=== PATIENT | female | born 1975 | race Two or more races ===

== ENCOUNTER 2022-03-24 21:32 | Inpatient (IN) | payer OTHER, SELFPAY ==
[2022-03-24 21:30] VITALS: BP 170/90; PULSE 88; RESP 20; TEMP 36.7; O2SAT 94
[2022-03-24 23:45] VITALS: BP 136/86; PULSE 78; RESP 18; TEMP 36.8; O2SAT 94
[2022-03-24] MEDS: LORazepam 1 MG TABLET 2 MG PO (23:47)
[2022-03-24] MEDS: HaloperidoL 5 MG TABLET PO (23:47)
[2022-03-24] MEDS: cloNIDine HCL 0.1 MG TABLET PO (23:47)
--- NOTE | 2022-03-25 | PC.NURSE ---
Chhaya was admitted to [facility] at 2114 from [facility] ED on CV for treatment of exacerbation of schizoaffective disorder. Admission assessment and legals completed with the assistance of japanese interpreter services. Patient reports she is recently homeless, living in car with son who is 18 but developmentally delayed. She reports being on Seroquel over 10 years but says it no longer works. She ran out on 03/18/22. She reports she has not slept in 6 days and is experiencing CAH to harm herself and believes [facility] ED was poisoning her with meds and the tv there was talking to her. She received Haldol 5mg and Ativan 2mg IM in [facility] Ed last night and found it helpful. On arrival to the unit she is hyperverbal and hypermotor. Speech is pressured and tangential. She is cooperative with care. Mood is hypomanic. Affect is anxious and irritable.She denies plan or intent to harm self or others. Appetite is good. Substance Issues include remote history of alcoholism with last drink along time ago. She reports using crack and percocets she bought on the street just prior to going to [facility] ED but her tox screen was neg for both ( only pos for thc) Medical Issues?include asthma but denies sob or wheeze at present. She reports chronic generalized pain and says she has arthritis. She declined analgesics. She reports having gotten her flu shot this season. On arrival to the unit BP is elevated. She says she used to take medication for hypertension but this was not confirmed by Sarah[facility]. She was given clonidine 0.1mg po x 1 for hypertension. Chhaya is on 15 minute Safety Checks.
[2022-03-25] MEDS: Acetaminophen 325 MG TABLET 650 MG PO ×3 (05:52→20:46)
[2022-03-25] MEDS: hydrOXYzine HCL 25 MG TABLET PO ×2 (05:53→12:17)
[2022-03-25] MEDS: Nicotine Polacrilex 2 MG GUM BUCCAL ×4 (05:53→20:46)
[2022-03-25 08:15] VITALS: BP 140/81; PULSE 77; RESP 20; TEMP 36.7; O2SAT 98
[2022-03-25 09:30] LABS: Alanine Aminotransferase 12 U/L (0-31); Albumin Level 4.4 g/dL (3.5-5.0); Alkaline Phosphatase 99 U/L (39-117); Anion Gap 14 (12-20); Aspartate Amino Transferase 14 U/L (5-31); Bilirubin Total 0.6 mg/dL (0.0-1.0); Blood Urea Nitrogen 11 mg/dL (9-16); Calcium 9.9 mg/dL (8.4-10.2); Carbon Dioxide 27 mmol/L (22-29); Chloride 103 mmol/L (96-108); Cholesterol 185 mg/dL; Estimated Glomerular Filt Rate > 60; Glucose Fasting 171 mg/dL (60-99); HDL Cholesterol 32 mg/dL; LDL Cholesterol Calculated 127 mg/dl; Potassium 4.3 mmol/L (3.3-5.1); Sodium 140 mmol/L (135-145); Total Protein 7.2 g/dL (6.5-8.0); Triglycerides 132 mg/dL
--- NOTE | 2022-03-25 10:57 | PC.NURSE ---
this am Pt was standing on her bed trying to cover the window from the light with a hospital gown. Pt appeared unsteady. Pt was advised via hospital food service worker to not stand on bed due to fall risk. Pt verbalized understanding and said she wont do it again.
[2022-03-25] MEDS: Milk of Magnesia 30 ML ORAL.SUSP PO (16:19)
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
[2022-03-25 20:22] VITALS: BP 131/83; PULSE 80; RESP 18; TEMP 36.4; O2SAT 96
[2022-03-25] MEDS: LORazepam 0.5 MG TABLET PO (20:40)
[2022-03-25] MEDS: cloNIDine HCL 0.1 MG TABLET PO (20:40)
[2022-03-25] MEDS: QUEtiapine Fumarate 100 MG TABLET PO (20:40)
[2022-03-26] MEDS: hydrOXYzine HCL 25 MG TABLET PO ×2 (04:25→21:54)
[2022-03-26] MEDS: Nicotine Polacrilex 2 MG GUM BUCCAL ×6 (08:14→22:01)
[2022-03-26] MEDS: LORazepam 0.5 MG TABLET PO ×3 (09:23→21:53)
[2022-03-26] MEDS: cloNIDine HCL 0.1 MG TABLET PO ×3 (09:23→21:54)
[2022-03-26] MEDS: Nicotine 7 MG PATCH.TD24 TRANSDERMA (09:24)
[2022-03-26 09:30] VITALS: BP 134/94; PULSE 92; RESP 18; TEMP 36.7; O2SAT 99
[2022-03-26] MEDS: HaloperidoL 5 MG TABLET PO (09:47)
[2022-03-26] MEDS: Acetaminophen 325 MG TABLET 650 MG PO ×2 (09:47→21:55)
[2022-03-26] MEDS: LORazepam 1 MG TABLET PO (09:47)
--- NOTE | 2022-03-26 10:03 | P.PNPSI_ITS ---
Subjective Subjective Date of Service: 03/26/22 Reason For Visit: psychosis Subjective Notes: Conditional Voluntary Interim History: Pt reports back pain, requesting percocet as she states this is the only medication that works. Pt easily frustrated and irritable. She reports passive SI. No VH/AH. Medication Compliance: Yes Review of Systems Review of Systems General: No fevers, malaise, unintentional weight loss HEENT: No blurred vision, diplopia. No sore throat, nasal congestion, rhinorrhea, sinus pain, ear pain Cardiovascular: No chest pain, palpitations, or leg edema Respiratory: No shortness of breath, wheezing, cough GI: No abdominal pain, nausea, vomiting, diarrhea, constipation, melena, hematochezia : No dysuria, hematuria, increased urinary frequency, decreased urinary output MSK: +myalgia, back pain Neuro: No headaches, weakness, paresthesias Psych: +depression Skin: No rashes or lesions Mental Status Exam Mental Status Exam Narrative: adequately dressed, disheveled. cooperative. PMA of strong and broad gestures. speech incr in rate, amount, loudness. nml tone. decr latency. affect labile, tearful. mood depressed and anxious. denies SI/HI. +AH. Diagnostics Vital Signs (24Hr): Vital Signs - 24 hr 03/27/22 09:20 03/27/22 20:45 Temperature 98.6 F 97.8 F Pulse Rate 103 H 85 Respiratory Rate 18 16 Blood Pressure 148/96 H 124/77 Pulse Oximetry 98 97 Oxygen Delivery Method Room Air Room Air Labs 03/26/22 15:22 03/25/22 08:51 Labs: Laboratory Results - last 48 hr 03/26/22 03/26/22 15:22 15:22 WBC 11.4 H RBC 5.04 Hgb 14.2 Hct 43.0 MCV 85.3 MCH 28.2 MCHC 33.0 RDW 12.1 Plt Count 339 MPV 9.3 L Immature Gran % (Auto) 0.3 Neut % (Auto) 68.4 Lymph % (Auto) 21.0 [place] % (Auto) 7.6 Eos % (Auto) 1.9 Baso % (Auto) 0.8 Lymph # (Auto) 2.4 [place] # (Auto) 0.9 Eos # (Auto) 0.2 Baso # (Auto) 0.1 Abs Immat Gran (auto) 0.03 Absolute Neuts (auto) 7.8 Absolute Nucleated RBC 0.000 Nucleated RBC % (auto) 0.0 Estimat Average Glucose 128 Hemoglobin A1c % 6.1 Medications Medications Current Medications Acetaminophen (Acetaminophen 325 Mg Tablet) 650 mg PO Q6H PRN PRN Reason: Headache/Pain Mild Scale (1-3) Last Admin: 03/28/22 01:06 Dose: 650 mg Al Hydroxide/Mg Hydroxide (Magnesium Hydrox/Alum Hydrox 30 Ml Oral.Susp) 30 ml PO Q6H PRN PRN Reason: Heartburn/Nausea Albuterol Sulfate (Albuterol Sulfate 90 Mcg 8 Gm Inhaler) 2 puff INHALE RQ4H PRN PRN Reason: Shortness of Breath/Wheezing Amlodipine Besylate (Amlodipine Besylate 5 Mg Tablet) 5 mg PO BEDTIME [facility]; Protocol Last Admin: 03/27/22 20:49 Dose: 5 mg Baclofen (Baclofen 10 Mg Tablet) 10 mg PO TID [facility] Last Admin: 03/27/22 20:49 Dose: 10 mg Clonidine HCl (Clonidine Hcl 0.1 Mg Tablet) 0.1 mg PO TID [facility]; Protocol Last Admin: 03/27/22 20:50 Dose: 0.1 mg Fluticasone Propionate (Fluticasone Propionate 100 Mcg Blst.W.Dev) 1 puff INHALE RBID [facility] Last Admin: 03/27/22 20:51 Dose: 1 puff Gabapentin (Gabapentin 100 Mg Capsule) 200 mg PO TID [facility] Last Admin: 03/27/22 20:50 Dose: 200 mg Haloperidol (Haloperidol 1 Mg Tablet) 2 mg PO TID [facility] Last Admin: 03/27/22 20:50 Dose: 2 mg Hydroxyzine HCl (Hydroxyzine Hcl 25 Mg Tablet) 25 mg PO Q6H PRN PRN Reason: Anxiety Last Admin: 03/28/22 01:06 Dose: 25 mg Lorazepam (Lorazepam 0.5 Mg Tablet) 0.5 mg PO TID [facility] Last Admin: 03/27/22 20:50 Dose: 0.5 mg Magnesium Hydroxide (Milk Of Magnesia 30 Ml Oral.Susp) 30 ml PO DAILY PRN PRN Reason: Constipation Last Admin: 03/25/22 16:19 Dose: 30 ml Nicotine (Nicotine 7 Mg Patch.Td24) 7 mg TRANSDERMA DAILY [facility] Last Admin: 03/27/22 08:48 Dose: 7 mg Nicotine Polacrilex (Nicotine Polacrilex 2 Mg Gum) 2 mg BUCCAL Q1H PRN PRN Reason: Nicotine Cravings Last Admin: 03/28/22 04:07 Dose: 2 mg Quetiapine Fumarate (Quetiapine Fumarate 100 Mg Tablet) 100 mg PO BEDTIME [facility] Last Admin: 03/27/22 20:49 Dose: 100 mg Quetiapine Fumarate (Quetiapine Fumarate 100 Mg Tablet) 100 mg PO BEDTIME PRN PRN Reason: insomnia Last Admin: 03/27/22 20:51 Dose: 100 mg Allergies Allergies Allergy/AdvReac Type Severity Reaction Status Date / Time No Known Allergies Allergy Unverified 12/05/19 18:20 Assessment & Plan Assessment & Plan (1) Mood disorder: Status: Acute Code(s): F39 - Unspecified mood [affective] disorder (2) Cocaine use disorder: Status: Acute Code(s): F14.10 - Cocaine abuse, uncomplicated (3) Opioid use disorder: Status: Acute Code(s): F11.90 - Opioid use, unspecified, uncomplicated Plan 03/26 continue tx. scheduled haldol 2mg po TID per pt request as this seemed to calm her down She may benefit from mood stabilizer. Patient educated on: diagnosis Reason for contiued inpatient stay Substantial Risk for: harm to self Time Spent With Patient Time: Total time managing care of this patient today ____ minutes.
[2022-03-26 14:29] VITALS: BP 150/91; PULSE 86; O2SAT 96
[2022-03-26 15:27] LABS: MANUAL DIFF FLAG NO
[2022-03-26] MEDS: Gabapentin 100 MG CAPSULE 200 MG PO ×2 (15:28→21:54)
[2022-03-26] MEDS: HaloperidoL 1 MG TABLET 2 MG PO ×2 (15:28→21:54)
[2022-03-26 15:29] LABS: Basophils Absolute Auto 0.1 X10*3/uL (0.0-0.2); Basophils Percent Auto 0.8 % (0-2); Eosinophils Absolute Auto 0.2 X10*3/uL (0.0-0.4); Eosinophils Percent Auto 1.9 % (0-4); Hemoglobin 14.2 g/dl (12.0-16.0); Imm Gran Abs Auto 0.03 X10*3/uL (0.00-0.03); Imm Gran Pct Auto 0.3 % (0.0-0.4); Lymphocytes Absolute Auto 2.4 X10*3/uL (1.2-4.9); Mean Corpuscular Hemoglobin 28.2 pg (27.0-33.0); Mean Corpuscular Volume 85.3 fL (80.0-98.0); Mean Platelet Volume 9.3 fL (9.4-12.3); Monocytes Absolute Auto 0.9 X10*3/uL (0.1-1.2); Monocytes Percent Auto 7.6 % (2-11); Neutrophils Absolute Auto 7.8 x10*3/uL (2.0-8.3); Neutrophils Percent Auto 68.4 % (45-73); Platelet Count 339 X10*3/uL (160-400); Red Blood Count 5.04 X10*6/uL (4.20-5.50); Red Cell Distribution Width 12.1 % (11.0-16.0); White Blood Count 11.4 X10*3/uL (4.8-10.8)
[2022-03-26] MEDS: Baclofen 10 MG TABLET PO ×2 (15:29→21:55)
--- NOTE | 2022-03-26 15:39 | HO.PM.IMCN ---
History of Present Illness Data of Consult Service Date: 03/26/22 Requesting physician: Benigno Tamez Primary Care Provider: Unknown Physician HPI Reason for consult: medical H&P 46 year old female with history of asthma, osteoarthritis, sleep apnea non compliant with CPAP, prediabetes, carpal tunnel syndrome, current 1ppd smoker who is homeless admitted to psychiatry with consult placed to Medicine for medical H&P. She tells me she has been living in her car with her disabled son and has been off of her medications for some time. She has had her albuterol inhaler and states she has been needing it at least once daily. She does continue to smoke 1 pack of cigarettes daily. Denies any alcohol or illicit drug use. Complaining of muscle aches, depression, and painful varicose veins that have been aching for months. Review of Systems Review of Systems: General: No fevers, malaise, unintentional weight loss HEENT: No blurred vision, diplopia. No sore throat, nasal congestion, rhinorrhea, sinus pain, ear pain Cardiovascular: No chest pain, palpitations, or leg edema Respiratory: No shortness of breath, wheezing, cough GI: No abdominal pain, nausea, vomiting, diarrhea, constipation, melena, hematochezia : No dysuria, hematuria, increased urinary frequency, decreased urinary output MSK: +myalgia, back pain Neuro: No headaches, weakness, paresthesias Psych: +depression Skin: No rashes or lesions [facility] Medical History Asthma Carpal tunnel syndrome Cigarette smoker Hypertension Prediabetes Sleep apnea Social History Household Members: Children Household Members Other:: Patient and son are homeless Housing: Homeless Do you presently have visiting nurse or other home services: No Patient Tobacco Use Status: Current everyday Tobacco user Tobacco use type: Cigarette Cigarette Packs Per Day: 1 Cigarettes Per Day: 20.0 Years Smoked: 30 Smoked in Last 30 Days: Yes Patient Interested in Nicotine Replacement: Yes Patient Given Instructions on How to Stop Smoking: No Second Hand Smoke Exposure: No Use of substances other than those prescribed or required for medical reasons: Yes Substance Use Type: Crack/Cocaine, Marijuana, Opiates and Prescription Drugs Substance Use Type Other:: per pt buys percocet and does crack regularly. tox screen negative for both Substance Use Frequency: Chronic Longstanding Last Used Substance: Just Prior to Admission Currently Displaying Signs/Symptoms of Drug Intoxication Withdrawal: No Any prior treatment program specific to substance use: No Have you been hit, kicked, punched, or otherwise hurt by someone within the past year? If so, by whom?: No Do you feel safe in your current relationship?: No Current Relationship Is there a partner from a previous relationship who is making you feel unsafe now?: No Are you made to feel afraid or neglected: No Advance Directives: No Advance Directives Information Provided: No Do you have thoughts of harming others: None Do you have a plan to hurt others: No Plan Recently lost weight without trying: No Eating poorly because of decreased appetite: No Nutrition Risks: No Nutritional Risk Patient : No : No service: No Meds Allergies Allergy/AdvReac Type Severity Reaction Status Date / Time No Known Allergies Allergy Unverified 12/05/19 18:20 Active Medications: Current Medications Acetaminophen (Acetaminophen 325 Mg Tablet) 650 mg PO Q6H PRN PRN Reason: Headache/Pain Mild Scale (1-3) Last Admin: 03/26/22 09:47 Dose: 650 mg Al Hydroxide/Mg Hydroxide (Magnesium Hydrox/Alum Hydrox 30 Ml Oral.Susp) 30 ml PO Q6H PRN PRN Reason: Heartburn/Nausea Baclofen (Baclofen 10 Mg Tablet) 10 mg PO TID [facility] Last Admin: 03/26/22 15:29 Dose: 10 mg Clonidine HCl (Clonidine Hcl 0.1 Mg Tablet) 0.1 mg PO TID [facility]; Protocol Last Admin: 03/26/22 14:27 Dose: 0.1 mg Gabapentin (Gabapentin 100 Mg Capsule) 200 mg PO TID [facility] Last Admin: 03/26/22 15:28 Dose: 200 mg Haloperidol (Haloperidol 1 Mg Tablet) 2 mg PO TID [facility] Last Admin: 03/26/22 15:28 Dose: 2 mg Hydroxyzine HCl (Hydroxyzine Hcl 25 Mg Tablet) 25 mg PO Q6H PRN PRN Reason: Anxiety Last Admin: 03/26/22 04:25 Dose: 25 mg Lorazepam (Lorazepam 0.5 Mg Tablet) 0.5 mg PO TID [facility] Last Admin: 03/26/22 14:27 Dose: 0.5 mg Magnesium Hydroxide (Milk Of Magnesia 30 Ml Oral.Susp) 30 ml PO DAILY PRN PRN Reason: Constipation Last Admin: 03/25/22 16:19 Dose: 30 ml Nicotine (Nicotine 7 Mg Patch.Td24) 7 mg TRANSDERMA DAILY [facility] Last Admin: 03/26/22 09:24 Dose: 7 mg Nicotine Polacrilex (Nicotine Polacrilex 2 Mg Gum) 2 mg BUCCAL Q1H PRN PRN Reason: Nicotine Cravings Last Admin: 03/26/22 13:58 Dose: 2 mg Quetiapine Fumarate (Quetiapine Fumarate 100 Mg Tablet) 100 mg PO BEDTIME [facility] Last Admin: 03/25/22 20:40 Dose: 100 mg Quetiapine Fumarate (Quetiapine Fumarate 100 Mg Tablet) 100 mg PO BEDTIME PRN PRN Reason: insomnia Home Medications Medication Instructions Recorded Confirmed Last Taken Type albuterol sulfate 90 mcg/actuation 2 puff inhalation QID PRN Wheezing 03/24/22 03/24/22 Unknown History aerosol inhaler (Ventolin HFA) cetirizine 10 mg tablet 10 mg PO DAILY PRN Allergic 03/24/22 03/24/22 Unknown History Symptoms ergocalciferol (vitamin D2) 1,000 1,000 unit PO 1XD 03/24/22 03/24/22 Unknown History unit capsule montelukast 10 mg tablet 10 mg PO BEDTIME 03/24/22 03/24/22 Unknown History (Singulair) quetiapine 400 mg tablet (Seroquel) 400 mg PO 2XD 03/24/22 03/24/22 03/18/22 History Physical Exam Vital Signs and Narrative: Vital Signs: Last Vital Signs Temp 98.1 F 03/26/22 09:30 Pulse 86 03/26/22 14:29 Resp 18 03/26/22 09:30 BP 150/91 H 03/26/22 14:29 Pulse Ox 96 03/26/22 14:29 O2 Del Method 03/26/22 14:29 Constitutional - Awake and Alert, No apparent distress Eyes - PERRLA, EOMI Cardiovascular - S1S2, RRR, No edema, varicose veins ble Respiratory - Normal lung expansion, Normal respiratory effort, No respiratory distress, expiratory wheezing lower lobes Gastrointestinal - NT / ND; +BS; No rebound or guarding Extremities - no calf tenderness bilaterally, no swelling Musculoskeletal - Normal inspection, normal ROM Skin - Warm/Dry Neurological - Alert & oriented x3, CN II-XII in tact, 5/5 strength BUE and BLE Psychological - Appropriate affect Results Labs 03/26/22 15:22 03/25/22 08:51 Labs: Laboratory Results - last 24 hr 03/26/22 15:22 MCV 85.3 MCH 28.2 MCHC 33.0 RDW 12.1 Plt Count 339 MPV 9.3 L Immature Gran % (Auto) 0.3 Neut % (Auto) 68.4 Lymph % (Auto) 21.0 [place] % (Auto) 7.6 Eos % (Auto) 1.9 Baso % (Auto) 0.8 Lymph # (Auto) 2.4 [place] # (Auto) 0.9 Eos # (Auto) 0.2 Baso # (Auto) 0.1 Abs Immat Gran (auto) 0.03 Absolute Neuts (auto) 7.8 Absolute Nucleated RBC 0.000 Nucleated RBC % (auto) 0.0 Assessment and Plan (1) Routine medical exam: Status: Acute Plan 46 year old female with history of asthma, osteoarthritis, sleep apnea non compliant with CPAP, prediabetes, carpal tunnel syndrome, current 1ppd smoker who is homeless admitted to psychiatry with consult placed to Medicine for medical H&P. #Depression/PTSD -Plan per psychiatry #Prediabetes -Hgb A1c 6.1% -Low carb diet #Varicose veins -TEDs bilaterally during day -Elevate legs, ambulate #Newly diagnosed hypertension -Amlodipine 5mg nightly -Monitor BPs #Mild persistent asthma -?overlap with COPD given smoking history- recommend outpt PFT -Add flovent 1 puff bid. Rinse mouth following use -Albuterol PRN #Cigarette smoker -Continue NRT -Cessation counseling provided #Leukocytosis -WBC 13 at [facility], trending down to 11 today -Pt asymptomatic, not likely related to infection. Likely smoking related Thank you for allowing me to participate in this consult. Signing off at this time. Please do not hesitate to call for further questions. Time Spent With Patient Time: Total time managing care of this patient today ____ minutes.
[2022-03-26 15:41] LABS: Estimated Average Glucose 128 mg/dL; Hemoglobin A1c % 6.1 %
[2022-03-26 21:52] VITALS: BP 157/98; PULSE 94; RESP 18; TEMP 36.3; O2SAT 96
[2022-03-26] MEDS: QUEtiapine Fumarate 100 MG TABLET PO ×2 (21:53→22:45)
[2022-03-26] MEDS: amLODIPine Besylate 5 MG TABLET PO (21:54)
[2022-03-26] MEDS: Fluticasone Propionate 100 MCG BLST.W.DEV 1 PUFF INHALE (21:58)
[2022-03-27] MEDS: Nicotine Polacrilex 2 MG GUM BUCCAL ×6 (04:46→21:06)
[2022-03-27] MEDS: hydrOXYzine HCL 25 MG TABLET PO (04:46)
[2022-03-27] MEDS: Acetaminophen 325 MG TABLET 650 MG PO (04:47)
[2022-03-27] MEDS: Nicotine 7 MG PATCH.TD24 TRANSDERMA (08:48)
[2022-03-27] MEDS: LORazepam 0.5 MG TABLET PO ×3 (08:49→20:50)
[2022-03-27] MEDS: Baclofen 10 MG TABLET PO ×3 (08:49→20:49)
[2022-03-27] MEDS: Gabapentin 100 MG CAPSULE 200 MG PO ×3 (08:49→20:50)
[2022-03-27] MEDS: cloNIDine HCL 0.1 MG TABLET PO ×3 (08:50→20:50)
[2022-03-27] MEDS: HaloperidoL 1 MG TABLET 2 MG PO ×3 (08:50→20:50)
[2022-03-27] MEDS: Fluticasone Propionate 100 MCG BLST.W.DEV 1 PUFF INHALE ×2 (09:02→20:51)
[2022-03-27 09:20] VITALS: BP 148/96; PULSE 103; RESP 18; TEMP 37; O2SAT 98
--- NOTE | 2022-03-27 11:09 | HO.PSYCHPN ---
Subjective Subjective Date of Service: 03/27/22 Reason For Visit: psychosis Subjective Notes: Conditional Voluntary Interim History: Pt with poor sleep. She reports feeling very tired. Pt continues to report back pain, requesting percocet as she states this is the only medication that works. Pt easily frustrated and irritable. She reports passive SI. No VH/AH. Review of Systems Review of Systems General: No fevers, malaise, unintentional weight loss HEENT: No blurred vision, diplopia. No sore throat, nasal congestion, rhinorrhea, sinus pain, ear pain Cardiovascular: No chest pain, palpitations, or leg edema Respiratory: No shortness of breath, wheezing, cough GI: No abdominal pain, nausea, vomiting, diarrhea, constipation, melena, hematochezia : No dysuria, hematuria, increased urinary frequency, decreased urinary output MSK: +myalgia, back pain Neuro: No headaches, weakness, paresthesias Psych: +depression Skin: No rashes or lesions Mental Status Exam Mental Status Exam Narrative: adequately dressed, disheveled. cooperative. PMA of strong and broad gestures. speech incr in rate, amount, loudness. nml tone. decr latency. affect labile, tearful. mood depressed and anxious. denies SI/HI. +AH. Diagnostics Vital Signs (24Hr): Vital Signs - 24 hr 03/27/22 09:20 03/27/22 20:45 Temperature 98.6 F 97.8 F Pulse Rate 103 H 85 Respiratory Rate 18 16 Blood Pressure 148/96 H 124/77 Pulse Oximetry 98 97 Oxygen Delivery Method Room Air Room Air Labs 03/26/22 15:22 03/25/22 08:51 Labs: Laboratory Results - last 48 hr 03/26/22 03/26/22 15:22 15:22 WBC 11.4 H RBC 5.04 Hgb 14.2 Hct 43.0 MCV 85.3 MCH 28.2 MCHC 33.0 RDW 12.1 Plt Count 339 MPV 9.3 L Immature Gran % (Auto) 0.3 Neut % (Auto) 68.4 Lymph % (Auto) 21.0 [place] % (Auto) 7.6 Eos % (Auto) 1.9 Baso % (Auto) 0.8 Lymph # (Auto) 2.4 [place] # (Auto) 0.9 Eos # (Auto) 0.2 Baso # (Auto) 0.1 Abs Immat Gran (auto) 0.03 Absolute Neuts (auto) 7.8 Absolute Nucleated RBC 0.000 Nucleated RBC % (auto) 0.0 Estimat Average Glucose 128 Hemoglobin A1c % 6.1 Medications Medications Current Medications Acetaminophen (Acetaminophen 325 Mg Tablet) 650 mg PO Q6H PRN PRN Reason: Headache/Pain Mild Scale (1-3) Last Admin: 03/28/22 01:06 Dose: 650 mg Al Hydroxide/Mg Hydroxide (Magnesium Hydrox/Alum Hydrox 30 Ml Oral.Susp) 30 ml PO Q6H PRN PRN Reason: Heartburn/Nausea Albuterol Sulfate (Albuterol Sulfate 90 Mcg 8 Gm Inhaler) 2 puff INHALE RQ4H PRN PRN Reason: Shortness of Breath/Wheezing Amlodipine Besylate (Amlodipine Besylate 5 Mg Tablet) 5 mg PO BEDTIME [facility]; Protocol Last Admin: 03/27/22 20:49 Dose: 5 mg Baclofen (Baclofen 10 Mg Tablet) 10 mg PO TID [facility] Last Admin: 03/27/22 20:49 Dose: 10 mg Clonidine HCl (Clonidine Hcl 0.1 Mg Tablet) 0.1 mg PO TID [facility]; Protocol Last Admin: 03/27/22 20:50 Dose: 0.1 mg Fluticasone Propionate (Fluticasone Propionate 100 Mcg Blst.W.Dev) 1 puff INHALE RBID [facility] Last Admin: 03/27/22 20:51 Dose: 1 puff Gabapentin (Gabapentin 100 Mg Capsule) 200 mg PO TID [facility] Last Admin: 03/27/22 20:50 Dose: 200 mg Haloperidol (Haloperidol 1 Mg Tablet) 2 mg PO TID [facility] Last Admin: 03/27/22 20:50 Dose: 2 mg Hydroxyzine HCl (Hydroxyzine Hcl 25 Mg Tablet) 25 mg PO Q6H PRN PRN Reason: Anxiety Last Admin: 03/28/22 01:06 Dose: 25 mg Lorazepam (Lorazepam 0.5 Mg Tablet) 0.5 mg PO TID [facility] Last Admin: 03/27/22 20:50 Dose: 0.5 mg Magnesium Hydroxide (Milk Of Magnesia 30 Ml Oral.Susp) 30 ml PO DAILY PRN PRN Reason: Constipation Last Admin: 03/25/22 16:19 Dose: 30 ml Nicotine (Nicotine 7 Mg Patch.Td24) 7 mg TRANSDERMA DAILY [facility] Last Admin: 03/27/22 08:48 Dose: 7 mg Nicotine Polacrilex (Nicotine Polacrilex 2 Mg Gum) 2 mg BUCCAL Q1H PRN PRN Reason: Nicotine Cravings Last Admin: 03/28/22 04:07 Dose: 2 mg Quetiapine Fumarate (Quetiapine Fumarate 100 Mg Tablet) 100 mg PO BEDTIME [facility] Last Admin: 03/27/22 20:49 Dose: 100 mg Quetiapine Fumarate (Quetiapine Fumarate 100 Mg Tablet) 100 mg PO BEDTIME PRN PRN Reason: insomnia Last Admin: 03/27/22 20:51 Dose: 100 mg Allergies Allergies Allergy/AdvReac Type Severity Reaction Status Date / Time No Known Allergies Allergy Unverified 12/05/19 18:20 Assessment & Plan Assessment & Plan (1) Mood disorder: Status: Acute Code(s): F39 - Unspecified mood [affective] disorder (2) Cocaine use disorder: Status: Acute Code(s): F14.10 - Cocaine abuse, uncomplicated (3) Opioid use disorder: Status: Acute Code(s): F11.90 - Opioid use, unspecified, uncomplicated Plan 03/26 continue tx. scheduled haldol 2mg po TID per pt request as this seemed to calm her down She may benefit from mood stabilizer. 03/27 continue tx. Reason for contiued inpatient stay Substantial Risk for: inability to function Time Spent With Patient Time: Total time managing care of this patient today ____ minutes.
[2022-03-27 20:45] VITALS: BP 124/77; PULSE 85; RESP 16; TEMP 36.6; O2SAT 97
[2022-03-27] MEDS: amLODIPine Besylate 5 MG TABLET PO (20:49)
[2022-03-27] MEDS: QUEtiapine Fumarate 100 MG TABLET PO ×2 (20:49→20:51)
[2022-03-28] MEDS: Acetaminophen 325 MG TABLET 650 MG PO ×2 (01:06→08:45)
[2022-03-28] MEDS: hydrOXYzine HCL 25 MG TABLET PO ×2 (01:06→21:51)
[2022-03-28] MEDS: Nicotine Polacrilex 2 MG GUM BUCCAL ×4 (01:12→12:42)
[2022-03-28] MEDS: Ibuprofen 400 MG TABLET PO (05:13)
[2022-03-28 08:15] VITALS: BP 111/63; PULSE 79; RESP 20; TEMP 36.4; O2SAT 99
[2022-03-28] MEDS: cloNIDine HCL 0.1 MG TABLET PO ×3 (08:43→21:11)
[2022-03-28] MEDS: Baclofen 10 MG TABLET PO ×3 (08:44→21:11)
[2022-03-28] MEDS: HaloperidoL 1 MG TABLET 2 MG PO (08:44)
[2022-03-28] MEDS: LORazepam 0.5 MG TABLET PO ×2 (08:45→21:12)
[2022-03-28] MEDS: Gabapentin 100 MG CAPSULE 200 MG PO (08:45)
[2022-03-28] MEDS: Nicotine 7 MG PATCH.TD24 TRANSDERMA (08:48)
[2022-03-28] MEDS: Albuterol Sulfate 90 MCG 8 GM INHALER 2 PUFF INHALE (08:54)
[2022-03-28] MEDS: Fluticasone Propionate 100 MCG BLST.W.DEV 1 PUFF INHALE ×2 (08:55→21:16)
[2022-03-28] MEDS: methADONE HCl 10 MG TABLET PO (12:53)
[2022-03-28 14:15] VITALS: BP 126/81; PULSE 100; RESP 20; TEMP 36.6; O2SAT 98
[2022-03-28] MEDS: Gabapentin 400 MG CAPSULE PO ×2 (14:20→21:12)
--- NOTE | 2022-03-28 15:30 | HO.ADDICT_ITS ---
History of Present Illness Date of Service: 03/28/2022 Chief Complaint: psychosis Reason for Consult: percocet use ? opioid withdrawal Requesting physician: Kermit Hogan Sources of Information: patient interviewed and chart reviewed HPI Narrative: Patient is a 46 year old Prydeinig speaking female currently admitted to unit with reported AH and overall decompensation. Patient transferred from [facility] ED where documentation shows that patient was reporting percocet use and withdrawal sx such as restlessness and back pain. She was seen by [facility] there, but was too sleepy to start medications for withdrawal/consent to treatment--that was 03/24/22. Documentation from over the weekend and today shows patient c/o back pain and irritable. Prior to patient being seen, methadone 10mg administered. Patient seen in room 324. Awake, alert, engaged in interview. Patient quite animated during interview, and would often shift between talking calmly to crying very loudly. She reports using what she believed to be percocets for the last 6 months to a year. States that she uses what she believed to be 15mg tabs--3 tabs IN throughout the day. Based on UDS, patient likely using pressed pills with fentanyl. UDS results from [facility]. A bit challenging to obtain history from patient due presentation and tangential thought process. She reports she also smokes crack cocaine for that last 30 years. She reports losing her housing in July has been living in a car or staying at peoples homes. She reports current drug use has impacted many areas of her life. 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 She denied any history of overdose and denied history of ATS admissions, however [facility] documentation shows that patient reported several ATS admissions. Patient denies any history of suboxone or methadone treatment or illicit use. When seen by this typewriter assembly and parts inspector she did not report any withdrawal sx including back pain. When asked if the methadone dose helped her she replied, what medication? I don't feel any different Attempted to explain to patient that she received methadone, but she then began to cry about not seeing her son who is in care home in [place]. This typewriter assembly and parts inspector did not note any restlessness, yawning, rhinorrhea during interview. Past Psychiatric History: hosps - denies psych hosp. multiple evals in EDs, however. SA - many times, via overdose. can't recall most recent attempt. SIB - h/o cutting, burning. can't recall most recent episode. no outpt providers currently. Diagnostics Vital Signs (24Hr): Vital Signs - 24 hr 03/27/22 20:45 03/28/22 08:15 03/28/22 14:15 Temperature 97.8 F 97.6 F 97.9 F Pulse Rate 85 79 100 Respiratory Rate 16 20 20 Blood Pressure 124/77 111/63 126/81 Pulse Oximetry 97 99 98 Oxygen Delivery Method Room Air Room Air Room Air Labs 03/26/22 15:22 03/25/22 08:51 Labs: Laboratory Results - last 48 hr 03/26/22 15:22 Estimat Average Glucose 128 Hemoglobin A1c % 6.1 Medications Medications Current Medications Acetaminophen (Acetaminophen 325 Mg Tablet) 650 mg PO Q6H PRN PRN Reason: Headache/Pain Mild Scale (1-3) Last Admin: 03/28/22 08:45 Dose: 650 mg Al Hydroxide/Mg Hydroxide (Magnesium Hydrox/Alum Hydrox 30 Ml Oral.Susp) 30 ml PO Q6H PRN PRN Reason: Heartburn/Nausea Albuterol Sulfate (Albuterol Sulfate 90 Mcg 8 Gm Inhaler) 2 puff INHALE RQ4H PRN PRN Reason: Shortness of Breath/Wheezing Last Admin: 03/28/22 08:54 Dose: 2 puff Amlodipine Besylate (Amlodipine Besylate 5 Mg Tablet) 5 mg PO BEDTIME [facility]; Protocol Last Admin: 03/27/22 20:49 Dose: 5 mg Baclofen (Baclofen 10 Mg Tablet) 10 mg PO TID [facility] Last Admin: 03/28/22 14:20 Dose: 10 mg Clonidine HCl (Clonidine Hcl 0.1 Mg Tablet) 0.1 mg PO TID [facility]; Protocol Last Admin: 03/28/22 14:20 Dose: 0.1 mg Fluticasone Propionate (Fluticasone Propionate 100 Mcg Blst.W.Dev) 1 puff IN [place] RBID [facility] Last Admin: 03/28/22 08:55 Dose: 1 puff Gabapentin (Gabapentin 400 Mg Capsule) 400 mg PO TID [facility] Last Admin: 03/28/22 14:20 Dose: 400 mg Hydroxyzine HCl (Hydroxyzine Hcl 25 Mg Tablet) 25 mg PO Q6H PRN PRN Reason: Anxiety Last Admin: 03/28/22 01:06 Dose: 25 mg Lorazepam (Lorazepam 0.5 Mg Tablet) 0.5 mg PO BID [facility] Magnesium Hydroxide (Milk Of Magnesia 30 Ml Oral.Susp) 30 ml PO DAILY PRN PRN Reason: Constipation Last Admin: 03/25/22 16:19 Dose: 30 ml Methadone HCl (Methadone Hcl 10 Mg Tablet) 10 mg PO TID [facility] Last Admin: 03/28/22 13:53 Dose: Not Given Nicotine (Nicotine 7 Mg Patch.Td24) 7 mg TRANSDERMA DAILY [facility] Last Admin: 03/28/22 08:48 Dose: 7 mg Nicotine Polacrilex (Nicotine Polacrilex 2 Mg Gum) 2 mg BUCCAL Q1H PRN PRN Reason: Nicotine Cravings Last Admin: 03/28/22 12:42 Dose: 2 mg Quetiapine Fumarate (Quetiapine Fumarate 100 Mg Tablet) 100 mg PO BEDTIME PRN PRN Reason: insomnia Last Admin: 03/27/22 20:51 Dose: 100 mg Quetiapine Fumarate (Quetiapine Fumarate 200 Mg Tablet) 200 mg PO BEDTIME [facility] Allergies Allergies Allergy/AdvReac Type Severity Reaction Status Date / Time No Known Allergies Allergy Unverified 12/05/19 18:20 Assessment & Plan Assessment & Plan (1) Opioid use disorder: Status: Acute Code(s): F11.90 - Opioid use, unspecified, uncomplicated Assessment and Plan: * methadone TID order discontinued--patient does not have a photo ID and this would be required for OTP admission. Patient also states she does not know if she can get to the clinic daily * will start suboxone 2mg TID---please wait to start until patient is in withdrawal. Restlessness, diaphoresis, etc. Should not start any sooner than tomorrow morning--risk of precipitated withdrawal given methadone dose earlier today. Will enter order as PRN to ensure medication is only given when withdrawal presents. * will follow up tomorrow * offer comfort medications as appropriate for anxiety, GI sx, etc. Total time managing care of this patient today __50__ minutes. [facility] Past Medical History Medical History Asthma Carpal tunnel syndrome Cigarette smoker Hypertension Prediabetes Sleep apnea Social History Social History Household Members: Children Household Members Other:: Patient and son are homeless Housing: Homeless Do you presently have visiting nurse or other home services: No Patient Tobacco Use Status: Current everyday Tobacco user Tobacco use type: Cigarette Cigarette Packs Per Day: 1 Cigarettes Per Day: 20.0 Years Smoked: 30 Smoked in Last 30 Days: Yes Patient Interested in Nicotine Replacement: Yes Patient Given Instructions on How to Stop Smoking: No Second Hand Smoke Exposure: No Use of substances other than those prescribed or required for medical reasons: Yes Substance Use Type: Crack/Cocaine, Marijuana, Opiates and Prescription Drugs Substance Use Type Other:: per pt buys percocet and does crack regularly. tox screen negative for both Substance Use Frequency: Chronic Longstanding Last Used Substance: Just Prior to Admission Currently Displaying Signs/Symptoms of Drug Intoxication Withdrawal: No Any prior treatment program specific to substance use: No Have you been hit, kicked, punched, or otherwise hurt by someone within the past year? If so, by whom?: No Do you feel safe in your current relationship?: No Current Relationship Is there a partner from a previous relationship who is making you feel unsafe now?: No Are you made to feel afraid or neglected: No Advance Directives: No Advance Directives Information Provided: No Do you have thoughts of harming others: None Do you have a plan to hurt others: No Plan Recently lost weight without trying: No Eating poorly because of decreased appetite: No Nutrition Risks: No Nutritional Risk Patient : No : No service: No
--- NOTE | 2022-03-28 18:54 | P.PNPSI_ITS ---
Subjective Subjective Date of Service: 03/28/22 Reason For Visit: psychosis Interim History: labile, histrionic, verbose. seen with tiller worker. c/o insomnia. agrees to increase seroquel to 200 QHS. also increase neurontin to 400 TID for neuropathic pain. taper ativan, DC haldol to [facility]. asking for pedicure, c/o medical probs of gluteal rash, chest tightness, lump on her head. c/o severe pain, had been buying oxys on the street, referral put in for OTP. in the meantime, methadone 10 TID ordered for pain. per staff, tearful. upset can't sleep bcse blinds are broken and let in too much light. crying on phone. anx 9. +VH of ppl outside her window. needs help sleeping. Mental Status Exam Mental Status Exam Narrative: adequately dressed, disheveled. cooperative. PMA of strong and broad gestures. speech incr in rate, amount, loudness. nml tone. decr latency. affect labile, tearful. mood depressed and anxious. denies SI/HI. +AH. Diagnostics Vital Signs (24Hr): Vital Signs - 24 hr 03/27/22 20:45 03/28/22 08:15 03/28/22 14:15 Temperature 97.8 F 97.6 F 97.9 F Pulse Rate 85 79 100 Respiratory Rate 16 20 20 Blood Pressure 124/77 111/63 126/81 Pulse Oximetry 97 99 98 Oxygen Delivery Method Room Air Room Air Room Air Labs 03/26/22 15:22 03/25/22 08:51 Medications Medications Current Medications Acetaminophen (Acetaminophen 325 Mg Tablet) 650 mg PO Q6H PRN PRN Reason: Headache/Pain Mild Scale (1-3) Last Admin: 03/28/22 08:45 Dose: 650 mg Al Hydroxide/Mg Hydroxide (Magnesium Hydrox/Alum Hydrox 30 Ml Oral.Susp) 30 ml PO Q6H PRN PRN Reason: Heartburn/Nausea Albuterol Sulfate (Albuterol Sulfate 90 Mcg 8 Gm Inhaler) 2 puff INHALE RQ4H PRN PRN Reason: Shortness of Breath/Wheezing Last Admin: 03/28/22 08:54 Dose: 2 puff Amlodipine Besylate (Amlodipine Besylate 5 Mg Tablet) 5 mg PO BEDTIME [facility]; Protocol Last Admin: 03/27/22 20:49 Dose: 5 mg Baclofen (Baclofen 10 Mg Tablet) 10 mg PO TID [facility] Last Admin: 03/28/22 14:20 Dose: 10 mg Buprenorphine/Naloxone (Buprenorphine/Naloxone 2/0.5mg Film) 1 film SUBLINGUAL TID PRN PRN Reason: Opiate Withdrawal Clonidine HCl (Clonidine Hcl 0.1 Mg Tablet) 0.1 mg PO TID [facility]; Protocol Last Admin: 03/28/22 14:20 Dose: 0.1 mg Fluticasone Propionate (Fluticasone Propionate 100 Mcg Blst.W.Dev) 1 puff INHALE RBID [facility] Last Admin: 03/28/22 08:55 Dose: 1 puff Gabapentin (Gabapentin 400 Mg Capsule) 400 mg PO TID [facility] Last Admin: 03/28/22 14:20 Dose: 400 mg Hydroxyzine HCl (Hydroxyzine Hcl 25 Mg Tablet) 25 mg PO Q6H PRN PRN Reason: Anxiety Last Admin: 03/28/22 01:06 Dose: 25 mg Lorazepam (Lorazepam 0.5 Mg Tablet) 0.5 mg PO BID [facility] Magnesium Hydroxide (Milk Of Magnesia 30 Ml Oral.Susp) 30 ml PO DAILY PRN PRN Reason: Constipation Last Admin: 03/25/22 16:19 Dose: 30 ml Nicotine (Nicotine 7 Mg Patch.Td24) 7 mg TRANSDERMA DAILY [facility] Last Admin: 03/28/22 08:48 Dose: 7 mg Nicotine Polacrilex (Nicotine Polacrilex 2 Mg Gum) 2 mg BUCCAL Q1H PRN PRN Reason: Nicotine Cravings Last Admin: 03/28/22 12:42 Dose: 2 mg Quetiapine Fumarate (Quetiapine Fumarate 100 Mg Tablet) 100 mg PO BEDTIME PRN PRN Reason: insomnia Last Admin: 03/27/22 20:51 Dose: 100 mg Quetiapine Fumarate (Quetiapine Fumarate 200 Mg Tablet) 200 mg PO BEDTIME [facility] Allergies Allergies Allergy/AdvReac Type Severity Reaction Status Date / Time No Known Allergies Allergy Unverified 12/05/19 18:20 Assessment & Plan Assessment & Plan (1) Opioid use disorder: Status: Acute Code(s): F11.90 - Opioid use, unspecified, uncomplicated Assessment and Plan: * methadone TID order discontinued--patient does not have a photo ID and this would be required for OTP admission. Patient also states she does not know if she can get to the clinic daily * will start suboxone 2mg TID---please wait to start until patient is in withdrawal. Restlessness, diaphoresis, etc. Should not start any sooner than tomorrow morning--risk of precipitated withdrawal given methadone dose earlier today. Will enter order as PRN to ensure medication is only given when withdrawal presents. * will follow up tomorrow * offer comfort medications as appropriate for anxiety, GI sx, etc. (2) Cocaine use disorder: Status: Acute Code(s): F14.10 - Cocaine abuse, uncomplicated (3) PTSD (post-traumatic stress disorder): Status: Acute Code(s): F43.10 - Post-traumatic stress disorder, unspecified Plan taper ativan D/C haldol as pt is already on seroquel. increase neurontin for neuropathic pain. increase seroquel at HS to 200 mg. started methadone 10 TID for pain; this was DCed by addiction team in favor of suboxone, to be started once pt in withdrawal. will review plan with addiction service tomorrow. Patient educated on: medication risk/benefits Reason for contiued inpatient stay Substantial Risk for: harm to self, inability to function and med/psych decompensation Time Spent With Patient Time: Total time managing care of this patient today __35__ minutes.
[2022-03-28 21:05] VITALS: BP 130/70; PULSE 83; RESP 18; TEMP 36.3; O2SAT 96
[2022-03-28] MEDS: QUEtiapine Fumarate 100 MG TABLET PO (21:11)
[2022-03-28] MEDS: amLODIPine Besylate 5 MG TABLET PO (21:11)
[2022-03-28] MEDS: QUEtiapine Fumarate 200 MG TABLET PO (21:12)
[2022-03-29] MEDS: Nicotine Polacrilex 2 MG GUM BUCCAL ×3 (02:58→21:11)
[2022-03-29] MEDS: Acetaminophen 325 MG TABLET 650 MG PO (03:13)
[2022-03-29] MEDS: hydrOXYzine HCL 25 MG TABLET PO (03:54)
[2022-03-29] MEDS: LORazepam 0.5 MG TABLET PO ×2 (05:11→20:23)
[2022-03-29] MEDS: Baclofen 10 MG TABLET PO ×3 (05:11→20:23)
[2022-03-29 09:17] VITALS: BP 114/78; PULSE 92; RESP 18; TEMP 36.7; O2SAT 98
[2022-03-29] MEDS: Fluticasone Propionate 100 MCG BLST.W.DEV 1 PUFF INHALE ×2 (09:19→20:24)
[2022-03-29] MEDS: Nicotine 7 MG PATCH.TD24 TRANSDERMA (09:20)
[2022-03-29] MEDS: cloNIDine HCL 0.1 MG TABLET PO ×3 (09:21→20:23)
[2022-03-29] MEDS: Gabapentin 400 MG CAPSULE PO ×3 (09:21→20:24)
[2022-03-29] MEDS: Buprenorphine/Naloxone 2/0.5mg FILM 1 FILM SUBLINGUAL ×3 (10:58→20:23)
--- NOTE | 2022-03-29 17:48 | P.PNPSI_ITS ---
Subjective Subjective Date of Service: 03/29/22 Reason For Visit: psychosis Interim History: appears remarkably brighter and less woeful today. also started opioids in the past day or so, now getting suboxone 2 mg TID per convo with gerard farris. discussed her medical problems again today, pt was educated to seek out PCP for Tx of outpt sorts of problems. she reports she slept very well last night at one pon[facility], and reports poor sleep last night at another. per staff, c/o diarrhea. anx 9, dep 10. denies SI/HI. labile. poor sleep. c/o being unhelped here. Mental Status Exam Mental Status Exam Narrative: adequately dressed, grooming improved. cooperative. no PMA/PMR. speech incr in rate, amount, loudness. nml tone. decr latency. affect normo-intense, non- labile, not tearful. no SI/HI/AVH expressed. Diagnostics Vital Signs (24Hr): Vital Signs - 24 hr 03/28/22 21:05 03/29/22 09:17 Temperature 97.4 F 98.1 F Pulse Rate 83 92 Respiratory Rate 18 18 Blood Pressure 130/70 114/78 Pulse Oximetry 96 98 Oxygen Delivery Method Room Air Room Air Labs 03/26/22 15:22 03/25/22 08:51 Medications Medications Current Medications Acetaminophen (Acetaminophen 325 Mg Tablet) 650 mg PO Q6H PRN PRN Reason: Headache/Pain Mild Scale (1-3) Last Admin: 03/29/22 03:13 Dose: 650 mg Al Hydroxide/Mg Hydroxide (Magnesium Hydrox/Alum Hydrox 30 Ml Oral.Susp) 30 ml PO Q6H PRN PRN Reason: Heartburn/Nausea Albuterol Sulfate (Albuterol Sulfate 90 Mcg 8 Gm Inhaler) 2 puff INHALE RQ4H PRN PRN Reason: Shortness of Breath/Wheezing Last Admin: 03/28/22 08:54 Dose: 2 puff Amlodipine Besylate (Amlodipine Besylate 5 Mg Tablet) 5 mg PO BEDTIME [facility]; Protocol Last Admin: 03/28/22 21:11 Dose: 5 mg Baclofen (Baclofen 10 Mg Tablet) 10 mg PO TID [facility] Last Admin: 03/29/22 15:15 Dose: 10 mg Buprenorphine/Naloxone (Buprenorphine/Naloxone 2/0.5mg Film) 1 film SUBLINGUAL TID [facility] Last Admin: 03/29/22 16:26 Dose: Not Given Clonidine HCl (Clonidine Hcl 0.1 Mg Tablet) 0.1 mg PO TID [facility]; Protocol Last Admin: 03/29/22 15:14 Dose: 0.1 mg Fluticasone Propionate (Fluticasone Propionate 100 Mcg Blst.W.Dev) 1 puff INHA LE RBID [facility] Last Admin: 03/29/22 09:19 Dose: 1 puff Gabapentin (Gabapentin 400 Mg Capsule) 400 mg PO TID [facility] Last Admin: 03/29/22 15:14 Dose: 400 mg Hydroxyzine HCl (Hydroxyzine Hcl 25 Mg Tablet) 25 mg PO Q6H PRN PRN Reason: Anxiety Last Admin: 03/29/22 03:54 Dose: 25 mg Lorazepam (Lorazepam 0.5 Mg Tablet) 0.5 mg PO BID [facility] Last Admin: 03/29/22 05:11 Dose: 0.5 mg Magnesium Hydroxide (Milk Of Magnesia 30 Ml Oral.Susp) 30 ml PO DAILY PRN PRN Reason: Constipation Last Admin: 03/25/22 16:19 Dose: 30 ml Nicotine (Nicotine 7 Mg Patch.Td24) 7 mg TRANSDERMA DAILY [facility] Last Admin: 03/29/22 09:20 Dose: 7 mg Nicotine Polacrilex (Nicotine Polacrilex 2 Mg Gum) 2 mg BUCCAL Q1H PRN PRN Reason: Nicotine Cravings Last Admin: 03/29/22 15:24 Dose: 2 mg Quetiapine Fumarate (Quetiapine Fumarate 100 Mg Tablet) 100 mg PO BEDTIME PRN PRN Reason: insomnia Last Admin: 03/28/22 21:11 Dose: 100 mg Quetiapine Fumarate (Quetiapine Fumarate 200 Mg Tablet) 200 mg PO BEDTIME [facility] Last Admin: 03/28/22 21:12 Dose: 200 mg Allergies Allergies Allergy/AdvReac Type Severity Reaction Status Date / Time No Known Allergies Allergy Unverified 12/05/19 18:20 Assessment & Plan Assessment & Plan (1) Opioid use disorder: Status: Acute Code(s): F11.90 - Opioid use, unspecified, uncomplicated Assessment and Plan: * methadone TID order discontinued--patient does not have a photo ID and this would be required for OTP admission. Patient also states she does not know if she can get to the clinic daily * will start suboxone 2mg TID---please wait to start until patient is in withdrawal. Restlessness, diaphoresis, etc. Should not start any sooner than tomorrow morning--risk of precipitated withdrawal given methadone dose earlier today. Will enter order as PRN to ensure medication is only given when withdrawal presents. * will follow up tomorrow * offer comfort medications as appropriate for anxiety, GI sx, etc. (2) Cocaine use disorder: Status: Acute Code(s): F14.10 - Cocaine abuse, uncomplicated (3) PTSD (post-traumatic stress disorder): Status: Acute Code(s): F43.10 - Post-traumatic stress disorder, unspecified Plan taper ativan D/C haldol as pt is already on seroquel. increase neurontin for neuropathic pain. increase seroquel at HS to 200 mg. started methadone 10 TID for pain; this was DCed by addiction team in favor of suboxone, to be started once pt in withdrawal. will review plan with addiction service tomorrow. 03/29: spirits improved since start on opioids. continue current mgmt. Reason for contiued inpatient stay Substantial Risk for: inability to function and rapid decompensation Time Spent With Patient Time: Total time managing care of this patient today __25__ minutes.
[2022-03-29] MEDS: QUEtiapine Fumarate 200 MG TABLET PO (20:23)
[2022-03-29] MEDS: amLODIPine Besylate 5 MG TABLET PO (20:23)
[2022-03-29 20:25] VITALS: BP 157/99; PULSE 93; RESP 18; TEMP 36.9; O2SAT 99
[2022-03-30] MEDS: Acetaminophen 325 MG TABLET 650 MG PO (03:41)
[2022-03-30] MEDS: Nicotine Polacrilex 2 MG GUM BUCCAL ×3 (06:41→19:26)
[2022-03-30 08:39] VITALS: BP 120/74; PULSE 86; RESP 18; TEMP 36.4; O2SAT 98
[2022-03-30] MEDS: Baclofen 10 MG TABLET PO ×3 (08:41→20:17)
[2022-03-30] MEDS: Gabapentin 400 MG CAPSULE PO ×3 (08:41→20:13)
[2022-03-30] MEDS: LORazepam 0.5 MG TABLET PO ×2 (08:41→20:13)
[2022-03-30] MEDS: Buprenorphine/Naloxone 2/0.5mg FILM 1 FILM SUBLINGUAL ×3 (08:41→20:13)
[2022-03-30] MEDS: cloNIDine HCL 0.1 MG TABLET PO ×3 (08:41→20:16)
[2022-03-30] MEDS: Nicotine 7 MG PATCH.TD24 TRANSDERMA (09:28)
[2022-03-30] MEDS: Fluticasone Propionate 100 MCG BLST.W.DEV 1 PUFF INHALE ×2 (09:28→20:12)
[2022-03-30] MEDS: hydrOXYzine HCL 25 MG TABLET PO (13:51)
--- NOTE | 2022-03-30 16:13 | HO.PSYCHPN ---
Subjective Subjective Date of Service: 03/30/22 Reason For Visit: psychosis Interim History: calm, cooperative. describing her frustration and fear at a couple of her peers, one bcse she feels her roommate is hypocritical and verbally aggressive and the other bcse she wanders into others' rooms at night. c/o calf and back pain. feels suboxone helpful for her anxiety. reporting nightmares and sleeping only 4-5 hours nightly. c/o feeling a bit dizzy in the morning and declines increase in clonidine for nightmares. per staff, rude comments re staff. no SI/HI/AVH. poor sleep. not attending groups. Mental Status Exam Mental Status Exam Narrative: adequately dressed, grooming improved. cooperative. no PMA/PMR. speech incr in rate, amount, loudness. nml tone. decr latency. affect normo-intense, non-labile, not tearful. no SI/HI/AVH expressed. Diagnostics Vital Signs (24Hr): Vital Signs - 24 hr 03/29/22 20:25 03/30/22 08:39 Temperature 98.4 F 97.6 F Pulse Rate 93 86 Respiratory Rate 18 18 Blood Pressure 157/99 H 120/74 Pulse Oximetry 99 98 Oxygen Delivery Method Room Air Room Air Labs 03/26/22 15:22 03/25/22 08:51 Medications Medications Current Medications Acetaminophen (Acetaminophen 325 Mg Tablet) 650 mg PO Q6H PRN PRN Reason: Headache/Pain Mild Scale (1-3) Last Admin: 03/30/22 03:41 Dose: 650 mg Al Hydroxide/Mg Hydroxide (Magnesium Hydrox/Alum Hydrox 30 Ml Oral.Susp) 30 ml PO Q6H PRN PRN Reason: Heartburn/Nausea Albuterol Sulfate (Albuterol Sulfate 90 Mcg 8 Gm Inhaler) 2 puff INHALE RQ4H PRN PRN Reason: Shortness of Breath/Wheezing Last Admin: 03/28/22 08:54 Dose: 2 puff Amlodipine Besylate (Amlodipine Besylate 5 Mg Tablet) 5 mg PO BEDTIME [facility]; Protocol Last Admin: 03/29/22 20:23 Dose: 5 mg Baclofen (Baclofen 10 Mg Tablet) 10 mg PO TID [facility] Last Admin: 03/30/22 14:41 Dose: 10 mg Buprenorphine/Naloxone (Buprenorphine/Naloxone 2/0.5mg Film) 1 film SUBLINGUAL TID [facility] Last Admin: 03/30/22 14:40 Dose: 1 film Clonidine HCl (Clonidine Hcl 0.1 Mg Tablet) 0.1 mg PO TID [facility]; Protocol Last Admin: 03/30/22 14:40 Dose: 0.1 mg Fluticasone Propionate (Fluticasone Propionate 100 Mcg Blst.W.Dev) 1 puff INHALE RBID [facility] Last Admin: 03/30/22 09:28 Dose: 1 puff Gabapentin (Gabapentin 400 Mg Capsule) 400 mg PO TID [facility] Last Admin: 03/30/22 14:40 Dose: 400 mg Hydroxyzine HCl (Hydroxyzine Hcl 25 Mg Tablet) 25 mg PO Q6H PRN PRN Reason: Anxiety Last Admin: 03/30/22 13:51 Dose: 25 mg Lorazepam (Lorazepam 0.5 Mg Tablet) 0.5 mg PO BEDTIME [facility] Magnesium Hydroxide (Milk Of Magnesia 30 Ml Oral.Susp) 30 ml PO DAILY PRN PRN Reason: Constipation Last Admin: 03/25/22 16:19 Dose: 30 ml Nicotine (Nicotine 7 Mg Patch.Td24) 7 mg TRANSDERMA DAILY [facility] Last Admin: 03/30/22 09:28 Dose: 7 mg Nicotine Polacrilex (Nicotine Polacrilex 2 Mg Gum) 2 mg BUCCAL Q1H PRN PRN Reason: Nicotine Cravings Last Admin: 03/30/22 13:51 Dose: 2 mg Quetiapine Fumarate (Quetiapine Fumarate 100 Mg Tablet) 100 mg PO BEDTIME PRN PRN Reason: insomnia Last Admin: 03/28/22 21:11 Dose: 100 mg Quetiapine Fumarate (Quetiapine Fumarate 200 Mg Tablet) 200 mg PO BEDTIME [facility] Last Admin: 03/29/22 20:23 Dose: 200 mg Allergies Allergies Allergy/AdvReac Type Severity Reaction Status Date / Time No Known Allergies Allergy Unverified 12/05/19 18:20 Assessment & Plan Assessment & Plan (1) Opioid use disorder: Status: Acute Code(s): F11.90 - Opioid use, unspecified, uncomplicated Assessment and Plan: methadone TID order discontinued--patient does not have a photo ID and this would be required for OTP admission. Patient also states she does not know if she can get to the clinic daily will start suboxone 2mg TID---please wait to start until patient is in withdrawal. Restlessness, diaphoresis, etc. Should not start any sooner than tomorrow morning--risk of precipitated withdrawal given methadone dose earlier today. Will enter order as PRN to ensure medication is only given when withdrawal presents. will follow up tomorrow offer comfort medications as appropriate for anxiety, GI sx, etc. (2) Cocaine use disorder: Status: Acute Code(s): F14.10 - Cocaine abuse, uncomplicated (3) PTSD (post-traumatic stress disorder): Status: Acute Code(s): F43.10 - Post-traumatic stress disorder, unspecified Plan taper ativan D/C haldol as pt is already on seroquel. increase neurontin for neuropathic pain. increase seroquel at HS to 200 mg. started methadone 10 TID for pain; this was DCed by addiction team in favor of suboxone, to be started once pt in withdrawal. will review plan with addiction service tomorrow. 03/29: spirits improved since start on opioids. continue current mgmt. 03/30: titrate opioids to 4 BID as of tomorrow, per gerard farris. stable. numerous somatic complaints. planning for discharge monday. Patient educated on: medication risk/benefits Reason for contiued inpatient stay Substantial Risk for: inability to function and rapid decompensation Time Spent With Patient Time: Total time managing care of this patient today __25__ minutes.
[2022-03-30] MEDS: QUEtiapine Fumarate 200 MG TABLET PO (20:12)
[2022-03-30] MEDS: amLODIPine Besylate 5 MG TABLET PO (20:16)
[2022-03-30 20:41] VITALS: BP 152/87; PULSE 92; RESP 20; TEMP 36.8; O2SAT 100
[2022-03-31] MEDS: Acetaminophen 325 MG TABLET 650 MG PO ×2 (05:30→20:25)
[2022-03-31] MEDS: hydrOXYzine HCL 25 MG TABLET PO ×3 (05:30→21:05)
[2022-03-31 06:00] VITALS: BP 144/82; PULSE 88; RESP 18; TEMP 36.7; O2SAT 99
[2022-03-31] MEDS: Fluticasone Propionate 100 MCG BLST.W.DEV 1 PUFF INHALE ×2 (08:02→20:06)
[2022-03-31] MEDS: Nicotine 7 MG PATCH.TD24 TRANSDERMA (08:03)
[2022-03-31] MEDS: Baclofen 10 MG TABLET PO ×3 (08:03→21:04)
[2022-03-31] MEDS: Gabapentin 400 MG CAPSULE PO ×3 (08:03→21:05)
[2022-03-31] MEDS: Buprenorphine/Naloxone 4/1 mg FILM 1 FILM SUBLINGUAL ×2 (08:03→21:05)
[2022-03-31] MEDS: cloNIDine HCL 0.1 MG TABLET PO ×3 (08:03→21:10)
[2022-03-31] MEDS: Milk of Magnesia 30 ML ORAL.SUSP PO (08:16)
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
[2022-03-31] MEDS: Nicotine Polacrilex 2 MG GUM BUCCAL (14:59)
--- NOTE | 2022-03-31 17:06 | P.PNADD_ITS ---
Subjective Subjective Date of Service: 03/31/22 Reason For Visit: psychosis Interim History: Patient seen in follow up Denies any pain, denies any withdrawal sx Would like to remain on suboxone at time of discharge Review of Systems Constitutional: Reports as per [facility] Mental Status Exam Mental Status Exam Patient Appearance: Well Grooomed Level of Consciousness: Awake and Alert Patient Behavior: Appropriate and Talkative Diagnostics Vital Signs (24Hr): Vital Signs - 24 hr 03/30/22 20:41 03/31/22 06:00 Temperature 98.2 F 98.1 F Pulse Rate 92 88 Respiratory Rate 20 18 Blood Pressure 152/87 H 144/82 H Pulse Oximetry 100 99 Oxygen Delivery Method Room Air Room Air Labs 03/26/22 15:22 03/25/22 08:51 Medications Medications Current Medications Acetaminophen (Acetaminophen 325 Mg Tablet) 650 mg PO Q6H PRN PRN Reason: Headache/Pain Mild Scale (1-3) Last Admin: 03/31/22 05:30 Dose: 650 mg Al Hydroxide/Mg Hydroxide (Magnesium Hydrox/Alum Hydrox 30 Ml Oral.Susp) 30 ml PO Q6H PRN PRN Reason: Heartburn/Nausea Albuterol Sulfate (Albuterol Sulfate 90 Mcg 8 Gm Inhaler) 2 puff INHALE RQ4H PRN PRN Reason: Shortness of Breath/Wheezing Last Admin: 03/28/22 08:54 Dose: 2 puff Amlodipine Besylate (Amlodipine Besylate 5 Mg Tablet) 5 mg PO BEDTIME [facility]; Protocol Last Admin: 03/30/22 20:16 Dose: 5 mg Baclofen (Baclofen 10 Mg Tablet) 10 mg PO TID [facility] Last Admin: 03/31/22 14:53 Dose: 10 mg Buprenorphine/Naloxone (Buprenorphine/Naloxone 4/1 Mg Film) 1 film SUBLINGUAL BID@0900,1800 [facility] Last Admin: 03/31/22 08:03 Dose: 1 film Clonidine HCl (Clonidine Hcl 0.1 Mg Tablet) 0.1 mg PO TID [facility]; Protocol Last Admin: 03/31/22 14:53 Dose: 0.1 mg Fluticasone Propionate (Fluticasone Propionate 100 Mcg Blst.W.Dev) 1 puff INHALE RBID [facility] Last Admin: 03/31/22 08:02 Dose: 1 puff Gabapentin (Gabapentin 400 Mg Capsule) 400 mg PO TID [facility] Last Admin: 03/31/22 14:53 Dose: 400 mg Hydroxyzine HCl (Hydroxyzine Hcl 25 Mg Tablet) 25 mg PO Q6H PRN PRN Reason: Anxiety Last Admin: 03/31/22 12:49 Dose: 25 mg Magnesium Hydroxide (Milk Of Magnesia 30 Ml Oral.Susp) 30 ml PO DAILY PRN PRN Reason: Constipation Last Admin: 03/31/22 08:16 Dose: 30 ml Nicotine (Nicotine 7 Mg Patch.Td24) 7 mg TRANSDERMA DAILY [facility] Last Admin: 03/31/22 08:03 Dose: 7 mg Nicotine Polacrilex (Nicotine Polacrilex 2 Mg Gum) 2 mg BUCCAL Q1H PRN PRN Reason: Nicotine Cravings Last Admin: 03/31/22 14:59 Dose: 2 mg Quetiapine Fumarate (Quetiapine Fumarate 100 Mg Tablet) 100 mg PO BEDTIME PRN PRN Reason: insomnia Last Admin: 03/28/22 21:11 Dose: 100 mg Quetiapine Fumarate (Quetiapine Fumarate 200 Mg Tablet) 200 mg PO BEDTIME [facility] Last Admin: 03/30/22 20:12 Dose: 200 mg Allergies Allergies Allergy/AdvReac Type Severity Reaction Status Date / Time No Known Allergies Allergy Unverified 12/05/19 18:20 Assessment & Plan Assessment & Plan (1) Opioid use disorder: Status: Acute Code(s): F11.90 - Opioid use, unspecified, uncomplicated Assessment and Plan: * continue suboxone 4mg BID * discharge scheduled for Monday. * take home narcan at time of discharge Total time managing care of this patient today __15__ minutes.
[2022-03-31] MEDS: QUEtiapine Fumarate 100 MG TABLET PO (21:04)
[2022-03-31 21:05] VITALS: BP 193/95; PULSE 98; RESP 18; TEMP 36.7; O2SAT 98
[2022-03-31] MEDS: QUEtiapine Fumarate 200 MG TABLET PO (21:05)
[2022-03-31] MEDS: amLODIPine Besylate 5 MG TABLET PO (21:10)
[2022-03-31] MEDS: Ibuprofen 800 MG TABLET PO (21:47)
[2022-04-01 07:56] VITALS: BP 124/70; PULSE 86; RESP 18; TEMP 36.8; O2SAT 99
[2022-04-01] MEDS: Fluticasone Propionate 100 MCG BLST.W.DEV 1 PUFF INHALE (08:08)
[2022-04-01] MEDS: Nicotine 7 MG PATCH.TD24 TRANSDERMA (08:09)
[2022-04-01] MEDS: Buprenorphine/Naloxone 4/1 mg FILM 1 FILM SUBLINGUAL (08:09)
[2022-04-01] MEDS: Gabapentin 400 MG CAPSULE PO (08:11)
[2022-04-01] MEDS: Baclofen 10 MG TABLET PO (08:11)
[2022-04-01] MEDS: cloNIDine HCL 0.1 MG TABLET PO (08:12)
[2022-04-01] MEDS: Acetaminophen 325 MG TABLET 650 MG PO (08:12)
--- NOTE | 2022-04-01 10:48 | PC.NURSE ---
Patient is alert and Oriented. research editor used to complete discharge instructions with patient. Patient reported an understanding and agreement with discharge teachings. Patient reports feeling safe and ready to go. Denies acute complaints at this time.
== END 2022-04-01 11:05 | disposition home or self-care (01) | DRG 753 ==
PROVIDERS: Physician Assistant; Psychiatry & Neurology Psychiatry; Admitting Provider Psychiatry & Neurology Psychiatry; Visit Provider Psychiatry & Neurology Psychiatry
DX: F39 Unspecified mood [affective] disorder (principal); Z91.199 Patient's noncompliance with other medical treatment and regimen due to unspecified reason; D72.829 Elevated white blood cell count, unspecified; F43.10 Post-traumatic stress disorder, unspecified; F11.20 Opioid dependence, uncomplicated; F17.210 Nicotine dependence, cigarettes, uncomplicated; G47.30 Sleep apnea, unspecified; I83.93 Asymptomatic varicose veins of bilateral lower extremities; J45.30 Mild persistent asthma, uncomplicated; I10 Essential (primary) hypertension; R73.03 Prediabetes; Z79.51 Long term (current) use of inhaled steroids; Z79.899 Other long term (current) drug therapy
CPT/HCPCS: 36415; 80053; 80061; 83036; 85025

== ENCOUNTER → 2022-04-04 13:03 | Outpatient (BNVA) | payer OTHER, SELFPAY | PROVIDERS: Visit Provider Nurse Practitioner Psychiatric/Mental Health | DX: F11.20 Opioid dependence, uncomplicated (principal); Z51.81 Encounter for therapeutic drug level monitoring; Z79.899 Other long term (current) drug therapy | CPT/HCPCS: 99202 ==

== ENCOUNTER → 2022-04-11 10:38 | Outpatient (BNVA) | payer OTHER, SELFPAY | PROVIDERS: Visit Provider Nurse Practitioner Psychiatric/Mental Health | DX: F11.20 Opioid dependence, uncomplicated (principal) | CPT/HCPCS: 80305; 99212 ==

== ENCOUNTER → 2022-04-28 10:46 | Outpatient (BNVA) | payer OTHER, SELFPAY | PROVIDERS: Visit Provider Nurse Practitioner Psychiatric/Mental Health | DX: Z51.81 Encounter for therapeutic drug level monitoring (principal); F11.20 Opioid dependence, uncomplicated | CPT/HCPCS: 80305; 99212 ==

== ENCOUNTER → 2022-06-22 14:58 | Outpatient (BNVA) | payer OTHER, SELFPAY | PROVIDERS: Visit Provider Nurse Practitioner Psychiatric/Mental Health | DX: F11.20 Opioid dependence, uncomplicated (principal); F14.20 Cocaine dependence, uncomplicated; F12.20 Cannabis dependence, uncomplicated; F17.210 Nicotine dependence, cigarettes, uncomplicated; Z59.01 Sheltered homelessness; Z79.899 Other long term (current) drug therapy; Z51.81 Encounter for therapeutic drug level monitoring | CPT/HCPCS: 99212 ==